=== PATIENT | female | born 1970 | race Caucasian/White ===

== ENCOUNTER 2018-07-09 13:55 | Day surgery (SDC) | payer MEDICAID, SELFPAY ==
[2018-07-09] VITALS (9 sets, daily range): BP systolic 99–134; BP diastolic 56–85; PULSE 77–128; RESP 16; TEMP 36.9; O2SAT 96–100; BMI 29.5
[2018-07-09 14:31] LABS: Hematocrit 33.9 % (37-47); Hemoglobin 10.7 g/dl (12.0-15.0); Mean Corp Hgb Conc 31.6 g/gl (32-36); Mean Corpuscular Hgb 29.4 pg (27.0-32.0); Mean Corpuscular Volume 93.1 fL (81-99); Mean Platelet Vol. 9.6 fl (6.2-12.0); Platelet Count 287 K/mm3 (150-450); RBC Distribution Width SD 44.3 fl (35.1-43.9); Red Blood Count 3.64 M/mm3 (4.2-5.4); White Blood Count 7.1 K/mm3 (4.4-11.0)
[2018-07-09 14:32] LABS: Scan Indicated on CBC? Y/N NO
[2018-07-09 14:47] LABS: Pregnancy, Serum, hCG Quali. NEGATIVE Negative (0-9 Nonpreg)
[2018-07-09 14:51] LABS: Thyroid Stim Hormone (TSH) 2.38 uIU/mL (0.358-3.74)
[2018-07-09] MEDS: Acetaminophen 500 MG Tablet 1000 MG PO (15:00)
--- NOTE | 2018-07-09 15:30 | UTC_PTH ---
PATIENT: SANTO FOX [place] [facility] [id number] AGE/SX: 48/F ROOM: RE07/09/[address]: Dr. Nathaly Prado MD : 1970 BED: DIS: 07/09/2018 SPEC #: [id number] RECD: 07/10/18 08:45 STATUS: WENDY DEBBIE #: [id number] LORI: 07/09/18 15:[address]: Nathaly Prado DEPT: SURGICAL PATHOLOGY RECD BY: Moe Lazaro ENTERED: 07/10/18 11:09 SP TYPE: UT AIDAN GANN DR: Dr. Violeta Caba MD Tissues: Uterine cervix, NOS Procedures: Surgery Specimen Level IV HEADER OPERATION: Hysteroscopy, dilation and curettage PRE-OP DIAGNOSIS: Abnormal uterine bleeding with endometrial polyp on ultrasound TISSUE SUBMITTED: Uterine curettings MICROSCOPIC DIAGNOSIS Uterine curettings: Secretory endometrium. Fragments of benign ecto- and endocervical epithelium. SJ:gerardo 07/13/18 MICROSCOPIC DESCRIPTION Slides are reviewed. GROSS DESCRIPTION Received in fixative is one container labeled with the patient's name and designated uterine curettings. The specimen consists of multiple fragments of hemorrhagic soft tissue that in aggregate measure 3 x 2.5 x 0.3 cm. The entire specimen is submitted in one cassette. / JIMMIE:gerardo 07/10/18 TC:4 CPT: 47898
--- NOTE | 2018-07-09 16:19 | PCM.DC.D&C ---
Discharge Diet: No Restrictions Discharge Activity: Return to Normal Activity, May Shower, May Take a Tub Bath - in 2 weeks. Return to work on:: 07/11/18 May shower in (days): 1 May resume sexual activity in: 2 weeks Call your doctor if your incision/area has: Continuous Slow Oozing, Sudden Increased Bleeding, Foul Smelling Discharge, Swelling at the incision site Call your doctor if you observe: Fever of 101 or Higher, Using more than one pad per hour - for 2 hrs in a row, Uncontrolled pain Allergies/Adverse Reactions: Allergies No Known Allergies Allergy (Verified 07/02/18 10:44) Medications to take at Discharge NK 07/02/18 Primary Care Physician: Violeta Caba MD [Primary Care Provider] - Test Results: Test results from this visit will be discussed in further detail at your follow-up appointment, if applicable. Please Follow Up With: Nathaly Prado MD - [phone] When: 2-4 weeks or as needed
--- NOTE | 2018-07-09 16:24 | DCINST_ITS ---
Discharge Diet: No Restrictions Discharge Activity: Return to Normal Activity, May Shower, May Take a Tub Bath - in 2 weeks. Return to work on:: 07/11/18 May shower in (days): 1 May resume sexual activity in: 2 weeks Call your doctor if your incision/area has: Continuous Slow Oozing, Sudden Increased Bleeding, Foul Smelling Discharge, Swelling at the incision site Call your doctor if you observe: Fever of 101 or Higher, Using more than one pad per hour - for 2 hrs in a row, Uncontrolled pain Allergies/Adverse Reactions: Allergies No Known Allergies Allergy (Verified 07/02/18 10:44) Medications to take at Discharge NK 07/02/18 Primary Care Physician: Violeta Caba MD [Primary Care Provider] - Test Results: Test results from this visit will be discussed in further detail at your follow- up appointment, if applicable. Please Follow Up With: Nathaly Prado MD - [phone] When: 2-4 weeks or as needed
--- NOTE | 2018-07-09 16:47 | PCM.OPRPT ---
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 The weighted speculum was placed in the vagina and the anterior lip of the cervix was grasped with a single-tooth tenaculum. A paracervical block was administered with 1% lidocaine with 1-100,000 epinephrine solution. The cervix was dilated serially with Hegar dilators. The symphion hysteroscope was placed into the uterine cavity and the above findings were noted. Bilateral tubal ostia were identified. The hysteroscope was removed. A gentle sharp curettage was done of the uterine cavity. The instruments were removed from the vagina. The specimen was handed off and sent to pathology. After the curettage, the endometrium appeared thin, and no focal abnormalities or discrete polypoid lesions were noted. All sponge and needle counts were correct. Vaginal sweep was performed by me. The patient was awakened and taken to the recovery room in stable condition. The hysteroscopic fluid deficit was 0 cc as calculated by Symphion device Findings: Endometrial cavity: Normal, no fibroids or polyps noted Cervix: Normal Vagina: Normal Grafts/Implants Used: none - Complications none - Admit VTE Documentation VTE Present on Admission: No VTE Mechan Device [place]: [facility] [place] Prophylaxis ordered?: No Reason prophylaxis not ordered:: Procedure Not Indicated
--- NOTE | 2018-07-09 16:51 | OP.PCM_ITS ---
Report of Operation Date of Procedure: 07/09/18 Pre-Operative Diagnosis: AUB, endometrial polyp Post-Operative Diagnosis: AUB Surgery/Procedure Performed:: hysteroscopy dilation and curettage Description of Surgical Findings:: lush endometrium, normal tubal ostia, normal cervix and vagina engine tester: None Type of Anesthesia:: MAC/Supplemental/Local Anesthesiologist: Jd Damian Special Medications: none Specimen's removed: endometrial curettings Drains: none Estimated Blood Loss (mL): 10 Fluids Replaced: 900cc LR Description of Procedure: The patient was taken to the OR where she was prepped and draped in dorsal lithotomy position. The weighted speculum was placed in the vagina and the anterior lip of the cervix was grasped with a single-tooth tenaculum. A paracervical block was administered with 1% lidocaine with 1-100,000 epinephrine solution. The cervix was dilated serially with Hegar dilators. The symphion hysteroscope was placed into the uterine cavity and the above findings were noted. Bilateral tubal ostia were identified. The hysteroscope was removed. A gentle sharp curettage was done of the uterine cavity. The instruments were removed from the vagina. The specimen was handed off and sent to pathology. After the curettage, the endometrium appeared thin, and no focal abnormalities or discrete polypoid lesions were noted. All sponge and needle counts were correct. Vaginal sweep was performed by me. The patient was awakened and taken to the recovery room in stable condition. The hysteroscopic fluid deficit was 0 cc as calculated by Symphion device Findings: Endometrial cavity: Normal, no fibroids or polyps noted Cervix: Normal Vagina: Normal Grafts/Implants Used: none - Complications none - Admit VTE Documentation VTE Present on Admission: No VTE Mechan Device Prophylaxis: [facility] [place] Pharm Prophylaxis ordered?: No Reason prophylaxis not ordered:: Procedure Not Indicated
== END 2018-07-09 17:55 | disposition home or self-care (01) ==
LOC: SDC 13:56 → AC 13:58
PROVIDERS: Family Provider Internal Medicine; PCP Internal Medicine; Referring Provider Obstetrics & Gynecology; Visit Provider Obstetrics & Gynecology
PROC: 0UDB8ZZ Extraction of Endometrium, Via Natural or Artificial Opening Endoscopic (ICD-10-PCS; CPT 58558; principal; 2018-07-09 15:20)
DX: N93.9 Abnormal uterine and vaginal bleeding, unspecified (principal); N85.8 Other specified noninflammatory disorders of uterus
CPT/HCPCS: 00952; 58558; 84443; 84703; 85027; 88305; J7120